=== PATIENT | female | born 1995 ===

== ENCOUNTER 2017-10-16 21:34 | Emergency (ER) | payer MEDICAID, OTHER ==
[2017-10-16 21:34] VITALS: BMI 43.5
[2017-10-16 21:40] VITALS: RESP 20; TEMP 98
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
[2017-10-16] MEDS ORDERED: Emtricitabine-Tenofovir 200 mg-300 mg Tab PO NR (23:31)
[2017-10-16] MEDS ORDERED: cefTRIAXone (Rocephin) 250 mg Inj IM STA (23:31)
[2017-10-16] MEDS ORDERED: Emtricitabine-Tenofovir 200 mg-300 mg Tab PO STA (23:31)
[2017-10-17 00:40] VITALS: BP 120/69; PULSE 81
[2017-10-17 02:35] VITALS: O2SAT 100
== END 2017-10-17 00:34 | disposition home or self-care (01) ==
LOC: C.ER 21:34
DX: T76.21XA Adult sexual abuse, suspected, initial encounter (principal); E11.9 Type 2 diabetes mellitus without complications; E03.9 Hypothyroidism, unspecified; Z72.0 Tobacco use
CPT/HCPCS: 86703; 96372; 99285; J0696

== ENCOUNTER 2018-03-09 14:37 | Emergency (ER) | payer MEDICAID, OTHER ==
[2018-03-09 14:48] VITALS: BMI 26.5
[2018-03-09] MEDS ORDERED: Sodium Chloride 0.9% 1,000 ML IV ONE (14:56)
[2018-03-09] MEDS ORDERED: Sodium Chloride 0.9% 1,000 ML ONE (15:28)
[2018-03-09 15:35] LABS: BASO % 0.5 % (0.0-2.0); EOS # 0.2 K/uL (0.0-0.7); EOS % 2.8 % (0.0-4.0); HEMOGLOBIN 13.4 g/dL (11.0-16.0); LYMPH # 2.1 K/uL (1.0-4.3); LYMPH % 27.1 % (20.0-40.0); MEAN CELL VOLUME 87.7 fL (81.0-99.0); MEAN CORPUSCULAR HGB CONC 34.3 g/dL (33.0-37.0); MEAN PLATELET VOLUME 9.3 fL (7.2-11.7); MONO # 0.6 K/uL (0.0-0.8); MONO % 7.6 % (0.0-10.0); NEUT # 4.7 K/uL (1.8-7.0); RBC 4.46 Mil/uL (3.80-5.20); RED CELL DISTRIBUTION WIDTH 13.8 % (11.5-14.5); WHITE BLOOD COUNT 7.6 K/uL (4.8-10.8)
[2018-03-09 15:49] LABS: SQUAMOUS EPITHIAL 7 /hpf (0-5); URINE BILIRUBIN NEGATIVE (NEGATIVE); URINE BLOOD 1+ (NEGATIVE); URINE CALCIUM OXALATE CRYSTALS FEW /hpf (<OCC); URINE CLARITY Clear (Clear); URINE COLOR Amber (YELLOW); URINE GLUCOSE (UA) NORMAL (Normal); URINE LEUKOCYTE ESTERASE NEG Leu/uL (Negative); URINE PROTEIN 1+ mg/dL (NEGATIVE)
[2018-03-09 15:50] LABS: ALB/GLOB RATIO 1.2 (1.0-2.1); ALBUMIN 4.2 g/dL (3.5-5.0); ALT/SGPT 27 U/L (9-52); AST/SGOT 25 U/L (14-36); BLOOD UREA NITROGEN 13 mg/dL (7-17); CALCIUM 9.1 mg/dl (8.6-10.4); GFR NON-AFRICAN AMERICAN > 60
--- NOTE | 2018-03-09 16:23 | CT ---
Date of service: 03/09/2018 PROCEDURE: CT HEAD WITHOUT CONTRAST. HISTORY: r/o ICH COMPARISON: None available. TECHNIQUE: Axial computed tomography images were obtained through the head/brain without intravenous contrast. Radiation dose: Total exam DLP = 991.69 mGy-cm. This CT exam was performed using one or more of the following dose reduction techniques: Automated exposure control, adjustment of the mA and/or kV according to patient size, and/or use of iterative reconstruction technique. FINDINGS: HEMORRHAGE: No intracranial hemorrhage. BRAIN: No mass effect or edema. No atrophy or chronic microvascular ischemic changes. VENTRICLES: No hydrocephalus. CALVARIUM: Unremarkable. PARANASAL SINUSES: Mucosal thickening of the ethmoid air cells. The remainder of the visualized paranasal sinuses appear clear. MASTOID AIR CELLS: Unremarkable as visualized. No inflammatory changes. OTHER FINDINGS: None. IMPRESSION: No acute intracranial pathology identified.
--- NOTE | 2018-03-09 16:34 | CT ---
Date of service: 03/09/2018 PROCEDURE: CT Abdomen and Pelvis without intravenous contrast HISTORY: r/o kidney stone COMPARISON: None. TECHNIQUE: Without contrast.. Contrast dose: 0 Radiation dose: Total exam DLP = 372.89 mGy-cm. This CT exam was performed using one or more of the following dose reduction techniques: Automated exposure control, adjustment of the mA and/or kV according to patient size, and/or use of iterative reconstruction technique. FINDINGS: LOWER THORAX: Unremarkable. LIVER: Unremarkable. No gross lesion or ductal dilatation. GALLBLADDER AND BILE DUCTS: Unremarkable. PANCREAS: Unremarkable. No gross lesion or ductal dilatation. SPLEEN: Unremarkable. ADRENALS: Unremarkable. No mass. KIDNEYS AND URETERS: Unremarkable. No hydronephrosis. No solid mass. No renal or ureteral calculus. VASCULATURE: Unremarkable. No aortic aneurysm. No aortic atherosclerotic calcification or mural plaque present. BOWEL: Sigmoid diverticulosis. No evidence of diverticulitis. No bowel obstruction. No other abnormal bowel loops. APPENDIX: Not positively identified. No secondary findings to suggest acute appendicitis. PERITONEUM: Trace fluid in the cul-de-sac. No pneumoperitoneum. LYMPH NODES: Unremarkable. No enlarged lymph nodes. BLADDER: Nondistended REPRODUCTIVE: Unremarkable uterus BONES: No acute fracture. OTHER FINDINGS: None. IMPRESSION: No evidence of urinary calculus or urinary tract obstruction. Incidentally noted trace fluid in cul-de-sac. Sigmoid diverticulosis without evidence of diverticulitis. No additional abnormality. Is doses lie is: See the
--- NOTE | 2018-03-09 17:01 | C.PDOC ---
History Of Present Illness 22 year old female presents to the ED complaining of mild dizziness and lightheadedness. Reports she passed out twice two days ago. Also notes lower back pain. Denies any chest pain, shortness of breath, hematuria, hematochezia, numbness, weakness. Time Seen by Provider: 03/09/18 14:54 Chief Complaint (Nursing): Dizziness/Lightheaded History Per: Patient History/Exam Limitations: no limitations Onset/Duration Of Symptoms: Days Current Symptoms Are (Timing): Still Present Past Medical History Reviewed: Historical Data, Nursing Documentation, Vital Signs Vital Signs: Last Vital Signs Temp 98.0 F 03/09/18 14:47 Pulse 67 03/09/18 15:11 Resp 16 03/09/18 15:11 BP 99/62 L 03/09/18 15:11 Pulse Ox 98 03/09/18 15:11 - Medical History PMH: Diabetes, Hypothyroidism Denies: Colonic Polyps, Fractures Surgical History: Denies: Endoscopy Other Surgeries: Hx of surgeries Family History: States: No Known Family Hx - Social History Hx Tobacco Use: Yes Hx Alcohol Use: Yes (Q WEEKEND) Hx Substance Use: No - Immunization History Hx Tetanus Toxoid Vaccination: No Hx Influenza Vaccination: No Hx Pneumococcal Vaccination: No Review Of Systems Except As Marked, All Systems Reviewed And Found Negative. Constitutional: Negative for: Fever, Chills Cardiovascular: Negative for: Chest Pain Respiratory: Negative for: Shortness of Breath Gastrointestinal: Negative for: Hematochezia Genitourinary: Negative for: Hematuria Musculoskeletal: Positive for: Back Pain Neurological: Positive for: Dizziness. Negative for: Weakness, Numbness Physical Exam - Physical Exam Appears: Non-toxic Skin: Warm, Dry, No Rash Head: Normacephalic Eye(s): bilateral: Normal Inspection Neck: Supple Chest: Symmetrical Cardiovascular: Rhythm Regular Respiratory: Normal Breath Sounds Gastrointestinal/Abdominal: Soft, No Tenderness Back: Other (diffused lower back tenderness) Extremity: Bilateral: Atraumatic, Normal Color And Temperature Neurological/Psych: Oriented x3, Normal Speech Gait: Steady ED Course And Treatment - Laboratory Results Result Diagrams: 03/09/18 15:30 03/09/18 15:30 ECG: Viewed By Me ECG Rhythm: Sinus Bradycardia Rate From EC O2 Sat by Pulse Oximetry: 98 (RA) Pulse Ox Interpretation: Normal - CT Scan/US CT HEAD Other Rad Studies (CT/US): Read By Radiologist, Radiology Report Reviewed CT/US Interpretation: Accession No. : [id number]. Patient Name / ID : HERNÁN ZAVALA / [id number]. Exam Date : 03/09/2018 15:57:00 ( Approved ). Study Comment : Sex / Age : F / 22Y. Creator : Willa Cosme. Dictator : Raquel Abrams MD. Flowers Salesperson : [employer] Help Desk Officer : Raquel Abrams MD. Approver2 : Report Date : 03/09/2018 16:09:05. My Comment : . Date of service: 03/09/2018. PROCEDURE: CT HEAD WITHOUT CONTRAST. HISTORY: r/o ICH. COMPARISON: None available. TECHNIQUE: Axial computed tomography images were obtained through the head/brain without intravenous contrast. Radiation dose: Total exam DLP = 9 91.69 mGy-cm. This CT exam was performed using one or more of the following dose reduction techniques: Automated exposure control, adjustment of the mA and/or kV according to patient size, and/or use of iterative reconstruction technique. FINDINGS: HEMORRHAGE: No intracranial hemorrhage. BRAIN: No mass effect or edema. No atrophy or chronic microvascular ischemic changes. VENTRICLES: No hydrocephalus. CALVARIUM: Unremarkable. PARANASAL SINUSES: Mucosal thickening of the ethmoid air cells. The remainder of the visualized paranasal sinuses appear clear. MASTOID AIR CELLS: Unremarkable as visualized. No inflammatory changes. OTHER FINDINGS: None. IMPRESSION: No acute intracr anial pathology identified. CT ABD/PEL Other Rad Studies (CT/US): Read By Radiologist, Radiology Report Reviewed CT/US Interpretation: Accession No. : [id number]. Patient Name / ID : HERNÁN ZAVALA / [id number]. Exam Date : 03/09/2018 16:08:31 ( Approved ). Study Comment : Sex / Age : F / 22Y. Creator : Willa Cosme. Dictator : Geoff Hernandez MD. Flowers Salesperson : [employer] Help Desk Officer : Geoff Hernandez MD. Approver2 : Report Date : 03/09/2018 16:12:07. My Comment : . Date of service: 03/09/2018. PROCEDURE: CT Abdomen and Pelvis without intravenous contrast. HISTORY: r/o kidney stone. COMPARISON: None. TECHNIQUE: Without contrast.. Contrast dose: 0. Radiation dose: Total exam DLP = 372.89 mGy-cm. This CT exam was performed using one or more of the following dose reduction techniques: Automated exposure control, adjustment of the mA and/or kV according to patient size, and/or use of iterative reconstruction technique. FINDINGS: LOWER THORAX: Unremarkable. LIVER: Unremarkable. No gross lesion or ductal dilatation. GALLBLADDER AND BILE DUCTS: Unremarkable. PANCREAS: Unremarkable. No gross lesion or ductal dilatation. SPLEEN: Unremarkable. ADRENALS: Unremarkable. No mass. KIDNEYS AND URETERS: Unremarkable. No hydronephrosis. No solid mass. No renal or ureteral calculus. VASCULATURE: Unremarkable. No aortic aneurysm. No aortic atherosclerotic calcification or mural plaque present. BOWEL: Sigmoid diverticulosis. No evidence of diverticulitis. No bowel obstruction. No other abnormal bowel loops. APPENDIX: Not positively identified. No secondary findings to suggest acute appendicitis. PERITONEUM: Trace fluid in the cul-de-sac. No pneumoperitoneum. LYMPH NODES: Unremarkable. No enlarged lymph nodes. BLADDER: Nondistended. REPRODUCTIVE: Unremarkable uterus Medical Decision Making Medical Decision Making: Plan - EKG - Toradol 30mg IVP - IV fluids - CT Head - CT Abd/Pel - Labwork Disposition - [facility] - Disposition: HOME/ ROUTINE Disposition Time: 17:00 Condition: GOOD Additional Instructions: LUCAS SALAMANCA, thank you for letting us take care of you today. The emergency medical care you received today was directed at your acute symptoms. If you were prescribed any medication, please fill it and take as directed. It may take several days for your symptoms to resolve. Return to the Emergency Department if your symptoms worsen, do not improve, or if you have any other problems. Please contact your doctor or call one of the physicians/clinics you have been referred to that are listed on the Patient Visit Information form that is included in your discharge packet. Bring any paperwork you were given at discharge with you along with any medications you are taking to your follow up visit. Our treatment cannot replace ongoing medical care by a primary care provider outside of the emergency department. Thank you for allowing the [email or web address] team to be part of your care today. Follow up with your primary care doctor in 3-4 days for re-evaluation and further management. Instructions: Generalized Weakness (DC), Weakness (ED) Forms: [employer] (Liberian) - Clinical Impression Clinical Impression: Weakness - Scribe Statement The provider has reviewed the documentation as recorded by the Scribандрей Woodard All medical record entries made by the Scribe were at my direction and personally dictated by me. I have reviewed the chart and agree that the record accurately reflects my personal performance of the history, physical exam, medical decision making, and the department course for this patient. I have also personally directed, reviewed, and agree with the discharge instructions and disposition.
[2018-03-09 17:31] VITALS: BP 100/63; PULSE 65; RESP 14; TEMP 98
[2018-03-09 18:43] VITALS: O2SAT 98
--- NOTE | 2018-03-13 18:24 | CARD ---
APPROVED REPORT Date of service: 03/09/2018 EKG Measurement Heart [id number] IL 140P51 [id number] <Conclusion> Sinus bradycardia Otherwise normal ECG
== END 2018-03-09 17:30 | disposition home or self-care (01) ==
LOC: C.ER 14:37
DX: R53.1 Weakness (principal)
CPT/HCPCS: 70450; 74176; 80053; 81001; 82948; 84443; 84480; 84484; 85025; 93005; 96361; 96374; 99285; J1885; J7030

== ENCOUNTER 2018-08-08 16:32 | Emergency (ER) | payer MEDICAID ==
[2018-08-08 16:32] VITALS: BMI 26.5
[2018-08-08 16:53] VITALS: O2SAT 100
[2018-08-08] MEDS ORDERED: Sodium Chloride 0.9% 1,000 ML IV ONE (18:13)
--- NOTE | 2018-08-08 18:33 | C.PDOC ---
History Of Present Illness 23 y/o female, , 6 weeks by date, presents to the ER for syncopal episode which occurred earlier in the morning today. Patient is also complaining of chronic tailbone pain which is related to a fall 1 year ago. She notes that she has lower pelvic discomfort. She states that she did not have a US yet. was unplanned. Denies having fever,chills, CP,SOB, and vaginal discharge. pt h/o gastric bypass surgery, has lost 150#. DM and obesity presumed due to hypothyroidism, pt started on levothyroxine magdalena- surgically, but took for only 1 week due to nausea while taking metformin and levothyroxine simultaneously. Despite DM resolved, pt has not restarted levothyroxine- has it stockpiled @ home. Time Seen by Provider: 08/08/18 17:59 Chief Complaint (Nursing): Abdominal Pain History Per: Patient History/Exam Limitations: no limitations Onset/Duration Of Symptoms: Days Current Symptoms Are (Timing): Still Present Severity: Moderate Past Medical History Reviewed: Historical Data, Nursing Documentation, Vital Signs Vital Signs: Last Vital Signs Temp 98.5 F 08/08/18 16:47 Pulse 46 L 08/08/18 17:59 Resp 20 08/08/18 17:59 BP 96/53 L 08/08/18 17:59 Pulse Ox 100 08/08/18 17:59 - Medical History PMH: Diabetes, Hypothyroidism Denies: Colonic Polyps, Fractures Surgical History: Denies: Endoscopy Family History: States: No Known Family Hx - Social History Hx Tobacco Use: Yes Hx Alcohol Use: Yes (Q WEEKEND) Hx Substance Use: No - Immunization History Hx Tetanus Toxoid Vaccination: No Hx Influenza Vaccination: No Hx Pneumococcal Vaccination: No Review Of Systems Except As Marked, All Systems Reviewed And Found Negative. Constitutional: Negative for: Fever, Chills Gastrointestinal: Negative for: Nausea, Vomiting, Diarrhea Genitourinary: Positive for: Pelvic Pain Neurological: Positive for: Other (syncopal episode) Physical Exam - Physical Exam Appears: No Acute Distress, Other (laying flat on bed) Skin: Normal Color, Warm, Dry Head: Atraumatic, Normacephalic Eye(s): bilateral: Normal Inspection Nose: Normal Oral Mucosa: Moist Neck: Supple Chest: Symmetrical Cardiovascular: Rhythm Regular Respiratory: Normal Breath Sounds, No Rales, No Rhonchi, No Wheezing Gastrointestinal/Abdominal: Normal Exam, Soft, No Tenderness, No Distention, No Guarding, No Rebound Extremity: Normal ROM Neurological/Psych: Oriented x3, Normal Speech ED Course And Treatment - Laboratory Results Result Diagrams: 08/08/18 18:43 08/08/18 18:43 O2 Sat by Pulse Oximetry: 100 (RA) Pulse Ox Interpretation: Normal - CT Scan/US Transvaginal US Other Rad Studies (CT/US): Read By Radiologist, Radiology Report Reviewed CT/US Interpretation: Impression. 1. Single live intrauterine gestation. 2. Left ovarian cysts. 3. Free fluid in the cul-de-sac. Medical Decision Making Medical Decision Making: Plan: --Labs --UA --US-Transvag --IV Fluids persistent bradycardia with boarderline low/normal BP in is concerning for clinical hypothyroidism. Increased demands of thyroid hormone due to development may be exacerbating clinical hypothyroidism and manifest as syncope in AM without reflex tachycardia. instructed to restart levothyroxine as prior dose (unknown) and f/u in AM with PMD/Endocrine Consult Chute Operator- Dr. Reyez- to f/u tonights TFT's and guide supplemental thyroid meds and dosages during . Disposition Doctor Will See Patient In The: Office Counseled Patient/Family Regarding: Studies Performed, Diagnosis - Disposition Disposition: HOME/ ROUTINE Disposition Time: 21:01 Condition: GOOD Forms: [employer] (Occitan) - Clinical Impression Clinical Impression: , Adult hypothyroidism - Scribe Statement The provider has reviewed the documentation as recorded by the Kassidy Velazquez Provider Attestation: All medical record entries made by the Kassidy were at my direction and personally dictated by me. I have reviewed the chart and agree that the record accurately reflects my personal performance of the history, physical exam, medical decision making, and the department course for this patient. I have also personally directed, reviewed, and agree with the discharge instructions and disposition.
[2018-08-08 18:34] LABS: SQUAMOUS EPITHIAL 16 /hpf (0-5); URINE BACTERIA OCC (<OCC); URINE BILIRUBIN NEGATIVE (NEGATIVE); URINE BLOOD NEGATIVE (NEGATIVE); URINE CLARITY Hazy (Clear); URINE COLOR Yellow (YELLOW); URINE GLUCOSE (UA) NORMAL (Normal); URINE LEUKOCYTE ESTERASE 1+ Leu/uL (Negative); URINE PROTEIN 1+ mg/dL (NEGATIVE)
[2018-08-08 18:49] LABS: BASO % 0.5 % (0.0-2.0); EOS # 0.2 K/uL (0.0-0.7); EOS % 3.3 % (0.0-4.0); HEMOGLOBIN 11.9 g/dL (11.0-16.0); LYMPH # 2.3 K/uL (1.0-4.3); LYMPH % 34.6 % (20.0-40.0); MEAN CORPUSCULAR HEMOGLOBIN 29.8 pg (27.0-31.0); MEAN CORPUSCULAR HGB CONC 33.1 g/dL (33.0-37.0); MEAN PLATELET VOLUME 8.3 fL (7.2-11.7); MONO # 0.8 K/uL (0.0-0.8); MONO % 11.7 % (0.0-10.0); NEUT # 3.3 K/uL (1.8-7.0); NEUT % 49.9 % (50.0-75.0); RBC 4.01 Mil/uL (3.80-5.20); RED CELL DISTRIBUTION WIDTH 12.9 % (11.5-14.5); WHITE BLOOD COUNT 6.7 K/uL (4.8-10.8)
[2018-08-08 19:10] LABS: ALB/GLOB RATIO 1.4 (1.0-2.1); ALBUMIN 3.9 g/dL (3.5-5.0); ALT/SGPT 45 U/L (9-52); AST/SGOT 43 U/L (14-36); BLOOD UREA NITROGEN 14 mg/dL (7-17); CALCIUM 8.9 mg/dl (8.6-10.4); GFR NON-AFRICAN AMERICAN > 60
[2018-08-08 20:02] VITALS: BP 91/54; PULSE 66; RESP 16; TEMP 98.6
[2018-08-08 21:56] LABS: FREE T4 0.81 ng/dL (0.78-2.19)
--- NOTE | 2018-08-09 10:46 | US ---
Date of service: 08/08/2018 Indication: 6 wks, pain/syncope, ? ectopic Comparison: None available Technique: Real-time transabdominal pelvic ultrasound was performed. In addition a transvaginal pelvic ultrasound was necessary to better depict pelvic anatomy. Findings: The uterus measures approximately 9.0 x 5.4 x 5.4 cm. Anteverted. Cervix length measures approximately 2.9 cm. There is a single intrauterine fetus present. 3 mm yolk sac. The gestational sac measures 2.0 cm and is compatible with a gestational age of 6 weeks 3 days. The crown-rump length measures 0.4 cm and is compatible with a gestational age of 6 weeks 1 day. There is heart motion which measured 120.8 BPM. The right ovary measures 2.8 x 1.8 x 2.6 cm. The left ovary measures 4.1 x 2.3 x 3.5 cm contains evidence of 2.3 cm corpus luteal cyst. Blood flow was demonstrated to both ovaries. Small pelvic free fluid. Impression: Live single intrauterine with estimated gestational age 6 weeks 1 day by crown-rump length calculation. heart rate 120.8 bpm. Advise an anomaly screen at 16-18 weeks gestational age Preliminary impression was provided by [employer].
== END 2018-08-08 21:17 | disposition home or self-care (01) ==
LOC: C.ER 16:32
DX: O99.281 Endocrine, nutritional and metabolic diseases complicating pregnancy, first trimester (principal); E03.9 Hypothyroidism, unspecified; Z3A.01 Less than 8 weeks gestation of pregnancy